=== PATIENT | female | born 1975 | race Asian ===

== ENCOUNTER → 2017-02-15 | Outpatient (CLI) | payer BC ==
[2006-01-17 07:44] VITALS: TEMP 97.5
[~2017-02-15] MED LIST: CEPHALEXIN500 M1 PO; NO HOME MEDICATIONS; PREDNISONE20 MG PO; SPRINTEC 35 MCG1 TAB PO
== END ==
LOC: MC.RAD 10:00
DX: Z12.31 Encounter for screening mammogram for malignant neoplasm of breast (principal)

== ENCOUNTER → 2018-04-11 | Outpatient (CLI) | payer BC ==
[2006-01-17 07:44] VITALS: TEMP 97.5
== END ==
LOC: MC.RAD 09:25
DX: Z12.31 Encounter for screening mammogram for malignant neoplasm of breast (principal)

== ENCOUNTER → 2020-05-02 | Outpatient (CLI) | payer BC ==
[2006-01-17 07:44] VITALS: TEMP 97.5
== END ==
LOC: MC.RAD 09:45
DX: Z12.31 Encounter for screening mammogram for malignant neoplasm of breast (principal)

== ENCOUNTER 2020-05-16 08:48 | Emergency (ER) | payer BC ==
[~2020-05-16] VITALS: Ht 154.9 cm; Wt 67.3 kg
[2020-05-16 08:53] VITALS: TEMP 97.9
[2020-05-16 10:05] VITALS: BP 112/71; PULSE 49
== END 2020-05-16 10:07 | disposition home or self-care (01) ==
LOC: COL.ER 08:48
DX: L50.9 Urticaria, unspecified (principal); Z79.52 Long term (current) use of systemic steroids
CPT/HCPCS: J1100; J1200

== ENCOUNTER → 2020-05-24 | Outpatient (CLI) | payer BC ==
[2006-01-17 07:44] VITALS: TEMP 97.5
== END ==
LOC: COL.RAD 08:32
DX: R10.13 Epigastric pain (principal)

== ENCOUNTER 2020-06-24 07:31 | Day surgery (SDC) | payer BC ==
[~2020-06-24] VITALS: Ht 152.4 cm; Wt 66.6 kg
[2020-06-24] MEDS ORDERED: PROTONIX 40MG T40 MG PO (07:55)
[2020-06-24] MEDS ORDERED: CARAFATE 1GM1 G PO (07:55)
[2020-06-24] MEDS ORDERED: TRI-SPRINTEC 281 TAB PO (07:55)
[2020-06-24 07:57] VITALS: BP 97/72; PULSE 50; TEMP 97.2
[2020-06-24 09:00] VITALS: BP 107/58; PULSE 53; TEMP 97.5
--- NOTE | 2020-06-24 09:00 | NUR ---
Pt to [facility] 6 via cart from ENDO. Pt awake and alert. Denies nausea or pain. Pt ambulates to recliner with stand by assist. Warm blanket provided. Juice given per pt request. Will continue to monitor. Call light within reach.
[2020-06-24 09:15] VITALS: BP 104/48; PULSE 50
--- NOTE | 2020-06-24 09:15 | NUR ---
Pt continues to rest. Tolerating po fluids without difficulties. Pt denies nausea. Will continue to monitor. Call light within reach.
[2020-06-24 09:30] VITALS: BP 108/56; PULSE 52
--- NOTE | 2020-06-24 09:30 | NUR ---
Pt continues to rest. Denies needs. in room. Call light within reach.
[2020-06-24 09:45] VITALS: BP 121/66; PULSE 47
--- NOTE | 2020-06-24 09:45 | NUR ---
Pt continues to rest. Denies needs. Call light within reach.
--- NOTE | 2020-06-24 10:00 | NUR ---
Discharge instructions reviewed. Pt voices understanding. IV site discontinued with all parts intact. Pt up to dress. Call light within reach.
--- NOTE | 2020-06-24 10:20 | NUR ---
Pt escorted to private car via wheel chair. Pt accompanied home by her .
== END 2020-06-24 10:20 | disposition home or self-care (01) ==
LOC: SDCO 07:31
DX: K29.30 Chronic superficial gastritis without bleeding (principal); K21.00 Gastro-esophageal reflux disease with esophagitis, without bleeding; K31.89 Other diseases of stomach and duodenum; K44.9 Diaphragmatic hernia without obstruction or gangrene; Z79.899 Other long term (current) drug therapy; Z90.49 Acquired absence of other specified parts of digestive tract
CPT/HCPCS: J7120